=== PATIENT | female | born 1945 | race Caucasian/White ===

== ENCOUNTER → 2018-02-23 | Outpatient (CLI) | payer MEDICARE, OTHER ==
[~2018-02-23] MED LIST: BARIUM SULFATE 135 ML (E-Z HD) PO; SIMETH/SOD BICARB/CIT AC PKT (E-Z- GAS II) PO
== END | disposition home or self-care (01) ==
LOC: U/S 08:00
DX: R10.9 Unspecified abdominal pain (principal)
CPT/HCPCS: 74240; 76700